=== PATIENT | male | born 1965 | race Hispanic/Latino ===

== ENCOUNTER 2020-12-04 17:20 | Observation (INO) ==
[2020-12-04] MEDS ORDERED: NORMAL SALINE 1,000 ML IV ONE ×2 (17:41→20:59)
[2020-12-04] MEDS ORDERED: ONDANSETRON HCL/PF 2 MG/ML VIAL IV ONE ×3 (17:41→20:45)
[2020-12-04 17:57] LABS: Hematocrit 46.1 % (42.0-52.0); Hemoglobin 14.9 gm/dL (13.5-18.0); Mean Cell Volume 88.5 fl (78-100); Mean Corpuscular Hemoglobin 28.6 pg (27-31); Mean Corpuscular Hgb Conc 32.3 g/dl (32-36); Mean Platelet Volume 9.7 fl (8-11.3); Neutrophil # 12.6 K/mm3 (1.3-6.0); Neutrophil % 84.4 % (42-75.0); Platelet Count 307 K/mm3 (150-450); Red Blood Count 5.21 M/mm3 (4.7-6.0); Red Cell Distribution Width 13.4 % (11.5-14.0); White Blood Count 14.9 K/mm3 (4.0-10.5)
--- NOTE | 2020-12-04 18:07 | ERNOTE ---
<Ravi Sheriff - Last Filed: 12/04/20 19:15> Medical Problem HPI - Narrative Date of Service: 12/04/20 - General Chief Complaint: Nausea/Vomiting Time Seen by Provider: 12/04/20 17:37 Source: patient Exam Limitations: no limitations - Immun/Allergies/Home Medications Immunizations: IMMUNIZATION HX Immunizations Up to Date Yes History of Influenza Vaccine Yes Hx Pneumococcal Vaccination Yes Allergies/Adverse Reactions: Allergies No Known Allergies Allergy (Verified 12/04/20 17:29) Home Medications: HOME MEDICATIONS omeprazole 40 mg capsule,delayed release 40 mg PO DAILY PRN #30 cap 08/21/19 [Last Taken Unknown] aspirin 81 mg tablet,delayed release 81 mg PO DAILY #30 tab 06/17/20 [Last Taken Unknown] lisinopril 20 mg tablet 20 mg PO DAILY #30 tab 07/11/20 [Last Taken Unknown] atorvastatin 20 mg tablet 20 mg PO DAILY #30 tab 11/03/20 [Last Taken Unknown] - History of Present History Narrative: Patient presents to the ED for nausea and dry heaves. He relates that he was at work and developed nausea, hot and cold chills and started dry heaving. Upper abdominal pain with this. No diarrhea. No CP or SOB. No other sick contacts. Has not seen anyone else for this. No blood in the vomit. No CP or SOB. Has not had anything like this before. Waxing and waning symptoms. Timing: constant, other - fluctuating intensity Severity: moderate Modifying Factors - (Improves): Present: other - nothing Modifying Factors - (Worsens): Present: other - nothing Review of Systems - Review of Systems Constitutional: Absent: fever ENT: Absent: sore throat Respiratory: Absent: shortness of breath Cardiology: Absent: chest pain Gastrointestinal/Abdominal: Present: See HPI Genitourinary: Absent: dysuria Neurological: Absent: weakness All Other Systems: All systems neg except as marked Medical History (Last Reviewed 12/04/20 @ 17:48 by Ravi Sheriff MD) COVID-19 vaccine administered (Acute) Hyperlipidemia (Chronic) Onset Date: Unknown Depression (Chronic) Onset Date: Unknown Anxiety (Chronic) Onset Date: Unknown Stroke Surgical History: Surgical History (Last Reviewed 12/04/20 @ 17:48 by Ravi Sheriff MD) H/O colonoscopy (Resolved) Onset Date: ~2016 WNL Repeat in 10 years Family History: Family History (Last Reviewed 12/04/20 @ 17:48 by Ravi Sheriff MD) Mother Alive and well Father , in 2008 Parkinson's disease Social History: (Last Reviewed 12/04/20 @ 17:48 by Ravi Sheriff MD) Social History: adopted: No Marital status: lives independently: Yes household members: none current occupational status: employed current occupation: [employer] Highest level of school completed/degree received: high school graduate Service: No Tobacco: Smoking Status: Never smoker Alcohol: alcohol intake: current alcohol intake frequency: a few times a month Substance Use: substance use type: does not use Dietary Habits: caffeine: Yes Type: carbonated beverages Physical Exam - Physical Exam General Appearance: Present: alert, no apparent distress Head Exam: Present: normal inspection, no evidence of injury Eye Exam: Normal inspection: bilateral, PERRL: bilateral Ears, Nose, Throat: Present: normal ENT inspection Neck: Present: normal inspection Respiratory: Present: no respiratory distress, normal breath sounds, no accessory muscle use, lungs clear Cardiovascular/Chest: Present: regular rate, rhythm, normal peripheral pulses Gastrointestinal/Abdominal: Present: normal bowel sounds, soft, other - epigastric and RUQ tendenress to palpation without mass or clear peritoneal signs Back Exam: Present: normal range of motion Extremity Exam: Present: normal inspection, normal range of motion Neurological Exam: Present: alert, other - no acute unilateral focal motor or sensory deficits Skin Exam: Present: normal color, warm/dry Progress - Results and Orders Patient's Lab Results:: I have reviewed the patient's lab results. - Vital Signs Patient's Vital Signs:: I have reviewed the patient's vital signs. Vital Signs: Vital Signs 12/04/20 17:23 Temperature 36.4 C Pulse Rate 97 Respiratory Rate 19 Blood Pressure 143/83 H O2 Sat by Pulse Oximetry 100 - EKG EKG #1 EKG: NSR EKG read: Interp. by me EKG Comments: NSR rate 67. No STEMI or acute changes noted. - Progress/Reassessment Chief Complaint: Nausea/Vomiting - Transfer of Care Physician Sign Out: Ravi Sheriff Receiving Physician: Demar Schuster Pending Results: CT/MRI results Departure Clinical Impression: Acute pancreatitis - Departure Disposition: Short Term Hospital Inpatient Condition: Fair Referrals: Bryant Chau MD [Primary Care Provider] - <Demar Schuster - Last Filed: 12/04/20 21:03> Medical Problem HPI - Immun/Allergies/Home Medications Immunizations: IMMUNIZATION HX Immunizations Up to Date Yes History of Influenza Vaccine Yes Hx Pneumococcal Vaccination Yes Medical History (Last Reviewed 12/04/20 @ 17:48 by Ravi Sheriff MD) COVID-19 vaccine administered (Acute) Hyperlipidemia (Chronic) Onset Date: Unknown Depression (Chronic) Onset Date: Unknown Anxiety (Chronic) Onset Date: Unknown Stroke Surgical History: Surgical History (Last Reviewed 12/04/20 @ 17:48 by Ravi Sheriff MD) H/O colonoscopy (Resolved) Onset Date: ~2016 WNL Repeat in 10 years Family History: Family History (Last Reviewed 12/04/20 @ 17:48 by Ravi Sheriff MD) Mother Alive and well Father , in 2008 Parkinson's disease Social History: (Last Reviewed 12/04/20 @ 17:48 by Ravi Sheriff MD) Social History: adopted: No Marital status: lives independently: Yes household members: none current occupational status: employed current occupation: [employer] Highest level of school completed/degree received: high school graduate Service: No Tobacco: Smoking Status: Never smoker Alcohol: alcohol intake: current alcohol intake frequency: a few times a month Substance Use: substance use type: does not use Dietary Habits: caffeine: Yes Type: carbonated beverages Progress - Vital Signs Vital Signs: Vital Signs 12/04/20 17:23 12/04/20 18:01 12/04/20 18:23 Temperature 36.4 C Pulse Rate 97 89 89 Respiratory Rate 19 16 Blood Pressure 143/83 H 152/84 H 148/72 H O2 Sat by Pulse Oximetry 100 96 99 12/04/20 18:44 12/04/20 18:50 12/04/20 19:22 Temperature Pulse Rate 104 H 96 98 Respiratory Rate 18 16 16 Blood Pressure 159/117 H 159/81 H 148/78 H O2 Sat by Pulse Oximetry 99 100 99 12/04/20 19:48 Temperature Pulse Rate 98 Respiratory Rate 16 Blood Pressure 128/78 O2 Sat by Pulse Oximetry 99 - CT/Ultrasound CT/Ultrasound Narrative: [address] [place] [id number] NAME: Luis A Nelson : 1965 MR #: [id number] CC: Ravi Sheriff MD LOC: ER ADM DATE: DIS DATE: X-RAY REPORT ~[id number] CT/CT Abdomen/Pelvis W/C *~ Exam Date: 12/04/2020 20:01 Ordering Physician: Ravi Sheriff MD Indication: Epigastric abdominal pain. Nausea and vomiting. Pancreatitis. Technique: After the administration of enteric contrast material, early post IV contrast imaging through the abdomen, and delayed post contrast imaging through the abdomen and pelvis. Coronal reformatted images were performed. Individualized dose optimization technique was used for the performed procedure including automated exposure control, adjustment of the mA and/or kV according to patient size and/or the iterative reconstruction technique. Comparison: Previous CT scan dated December 04, 2009 Findings: Abdomen: The lung bases are clear. The liver is normal without mass or ductal dilation. The gallbladder is normal. Splenic granulomas. Pancreas is normal. There is no edema, fatty stranding or evidence for pancreatitis. No mass or ductal dilation. The adrenal glands are normal. The kidneys demonstrate normal contrast-enhancement and excretion and are without solid mass, nephrolithiasis or hydronephrosis. The stomach and small bowel loops are well-opacified and normal. No mesenteric or retroperitoneal lymphadenopathy. The appendix is normal. Scattered diverticulosis throughout the distal colon. No inflammatory change to suggest diverticulitis. Pelvis: The bladder is well distended and normal. No free pelvic fluid. No inguinal or pelvic lymphadenopathy. There is mild atherosclerosis of the abdominal aorta and major branches. No aneurysmal dilation. There is multilevel degenerative change of the spine, SI joints and bilateral hips. IMPRESSION: 1. NO ACUTE INTRA-ABDOMINAL OR PELVIC PROCESS. 2. PANCREAS IS NORMAL. 3. ADDITIONAL COMMENTS AND DETAILS ABOVE. Electronically signed by Lino Wu D.O.. Lino Wu DO Dict: 12/04/202023 Typed: 12/04/202023/ Plan - Plan Plan: Patient doing well stable pain is gone however he still remains nauseous due to the due to the nausea will be keeping him overnight and observation Dr. Bella, admitting
[2020-12-04 18:18] LABS: ALT 47 U/L (19-67); AST 31 U/L (0-48); Albumin * 4.5 gm/dl (3.4-5.0); Alkaline Phosphatase * 95 U/L (50-170); Anion Gap 10.5 mmol/L (6.8-13.8); BUN/Creatinine Ratio 20.3 (9.0-21.6); Bilirubin, Total 0.6 mg/dL (0.0-1.1); Blood Urea Nitrogen 15 mg/dL (6-23); Ca. Corrected For Albumin 8.6 mg/dL (8.4-10.2); Calcium * 9.3 mg/dL (7.9-10.9); Carbon Dioxide 29.3 mmol/L (24-32.6); Chloride 103 mmol/L (97-106); Glucose * 116 mg/dL (70-110); Lipase 1065 U/L (73-393); Potassium 3.8 mmol/L (3.4-4.6); Sodium 139 mmol/L (132-142); Total Protein 8.4 gm/dL (6.2-8.2); Troponin I Less than 0.017 ng/mL (0.00-0.10)
[2020-12-04] MEDS ORDERED: MORPHINE SULFATE 4 MG/ML SYRG IV ONE (18:23)
[2020-12-04] MEDS ORDERED: DIATRIZOATE MEGLUMINE, SODIUM 30 ML BTL PO ONE (18:32)
[2020-12-04 18:45] LABS: Amylase * 223 U/L (25-115); LD 176 U/L (85-227)
[2020-12-04 19:05] LABS: Urine Bilirubin Negative (NEGATIVE); Urine Ketone 15 mg/dL (NEGATIVE); Urine Nitrite Negative (NEGATIVE); Urine Protein Negative (NEGATIVE); Urine Specific Gravity 1.025 SP.GR. (1.005-1.030); Urine Urobilinogen Normal (NORMAL)
[2020-12-04] MEDS ORDERED: diphenhydrAMINE HCL 50 MG/ML VIAL IV ONE (19:13)
[2020-12-04] MEDS ORDERED: METOCLOPRAMIDE HCL 5 MG/ML VIAL IV ONE (19:13)
[2020-12-04 19:15] LABS: Urine Appearance Clear (CLEAR); Urine Blood 5 /ul (NEGATIVE); Urine Color Yellow
[2020-12-04 19:16] LABS: Urine Bacteria TRACE; Urine Mucus Few - 1+; Urine RBC 0-5 /hpf (0-5); Urine WBC TRACE /hpf (0-5)
[2020-12-04] MEDS ORDERED: PIPERACILLIN SODIUM/TAZOBACTAM 3.375 GM in DEXTROSE 5 % IN WATER 100 ML IV ONE ×2 (19:48)
[2020-12-04] MEDS ORDERED: ONDANSETRON HCL/PF 2 MG/ML VIAL IV PRN (20:59)
[2020-12-04] MEDS ORDERED: MORPHINE SULFATE 4 MG/ML SYRG IV PRN (21:01)
[2020-12-04] MEDS ORDERED: diphenhydrAMINE HCL 50 MG/ML VIAL IV PRN (23:11)
[2020-12-04] MEDS ORDERED: METOCLOPRAMIDE HCL 5 MG/ML VIAL IV PRN (23:12)
[2020-12-05 06:17] LABS: Hematocrit 40.6 % (42.0-52.0); Hemoglobin 13.1 gm/dL (13.5-18.0); Mean Cell Volume 88.5 fl (78-100); Mean Corpuscular Hemoglobin 28.5 pg (27-31); Mean Corpuscular Hgb Conc 32.3 g/dl (32-36); Mean Platelet Volume 10.1 fl (8-11.3); Neutrophil # 9.9 K/mm3 (1.3-6.0); Neutrophil % 82.8 % (42-75.0); Platelet Count 268 K/mm3 (150-450); Red Blood Count 4.59 M/mm3 (4.7-6.0); Red Cell Distribution Width 13.7 % (11.5-14.0); White Blood Count 11.9 K/mm3 (4.0-10.5)
[2020-12-05 06:31] LABS: ALT 35 U/L (19-67); AST 23 U/L (0-48); Albumin * 3.5 gm/dl (3.4-5.0); Alkaline Phosphatase * 76 U/L (50-170); Amylase * 81 U/L (25-115); Anion Gap 13.1 mmol/L (6.8-13.8); BUN/Creatinine Ratio 17.1 (9.0-21.6); Bilirubin, Total 0.6 mg/dL (0.0-1.1); Blood Urea Nitrogen 12 mg/dL (6-23); Ca. Corrected For Albumin 8.3 mg/dL (8.4-10.2); Calcium * 8.2 mg/dL (7.9-10.9); Carbon Dioxide 24.3 mmol/L (24-32.6); Chloride 106 mmol/L (97-106); Glucose * 104 mg/dL (70-110); Lipase 215 U/L (73-393); Potassium 3.4 mmol/L (3.4-4.6); Sodium 140 mmol/L (132-142); Total Protein 6.6 gm/dL (6.2-8.2)
[2020-12-05 06:32] LABS: Troponin I Less than 0.017 ng/mL (0.00-0.10)
[2020-12-05] MEDS ORDERED: PANTOPRAZOLE SODIUM 40 MG TABLET.EC PO SCH (08:30)
--- NOTE | 2020-12-05 08:42 | HPDIS ---
Chief Complaint - Chief Complaint Date of Service: 12/05/20 Time of Service: 08:11 Chief Complaint: Nausea and vomiting x1 day History of Present Illness: 55-year-old male with a past medical history of hypertension, anxiety, depressi on, GERD stroke, hyperlipidemia presents with complaints of nausea and vomiting x1 day. He states his symptoms began yesterday morning and progressively worsened. He presented to the emergency room and was found to have have a leukocytosis of 14.9, lipase of 1065. CT abdomen pelvis showed a normal pancreas, no acute intra-abdominal or pelvic process. He responded well to Reglan and Benadryl. He was admitted for acute pancreatitis. Medical History (Last Reviewed 12/04/20 @ 21:19 by Orlando Gregory RN) COVID-19 vaccine administered (Acute) Hyperlipidemia (Chronic) Onset Date: Unknown Depression (Chronic) Onset Date: Unknown Anxiety (Chronic) Onset Date: Unknown Stroke Surgical History: Surgical History (Last Reviewed 12/04/20 @ 21:19 by Orlando Gregory RN) H/O colonoscopy (Resolved) Onset Date: ~2016 WNL Repeat in 10 years Family History: Family History (Last Updated 12/04/20 @ 21:19 by Orlando Gregory RN) Mother Alive and well Father , in 2008 Parkinson's disease Sister Parkinson's disease Social History: (Last Updated 12/04/20 @ 21:20 by Orlando Gregory RN) Social History: adopted: No Marital status: lives independently: No lives independently comment: with mother household members: none current occupational status: employed current occupation: [employer] Highest level of school completed/degree received: Associate degree: [employer] Service: No Tobacco: Smoking Status: Never smoker Alcohol: alcohol intake: current alcohol intake frequency: a few times a month Substance Use: substance use type: does not use Dietary Habits: caffeine: Yes Type: carbonated beverages Review Of Systems (GEN) - Review of Systems Generalized/Overall Review: Absent: Fever Respiratory: Absent: Shortness of Breath Cardiac: Absent: Chest Pain Abdominal: Present: Nausea, Vomiting. Absent: Abdominal Pain Misc: All systems neg except as marked Immunizations: IMMUNIZATION HX Immunizations Up to Date Yes History of Influenza Vaccine Yes Hx Pneumococcal Vaccination Yes Allergies/Adverse Reactions: Allergies Allergy/AdvReac Type Severity Reaction Status Date / Time No Known Allergies Allergy Verified 12/04/20 17:29 Home Medications: HOME MEDICATIONS omeprazole 40 mg capsule,delayed release 40 mg PO DAILY PRN #30 cap 08/21/19 [Last Taken Unknown] aspirin 81 mg tablet,delayed release 81 mg PO DAILY #30 tab 06/17/20 [Last Taken Unknown] lisinopril 20 mg tablet 20 mg PO DAILY #30 tab 07/11/20 [Last Taken Unknown] atorvastatin 20 mg tablet 20 mg PO DAILY #30 tab 11/03/20 [Last Taken Unknown] Exam - Exam Vital Signs: Vital Signs - Last Taken Temp 37.5 C 12/05/20 06:00 Pulse 97 12/05/20 06:00 Resp 16 12/05/20 06:00 BP 112/73 12/05/20 06:00 Pulse Ox 96 12/05/20 06:00 Constitutional: Present: Alert, Cooperative, Well developed, Well nourished, No distress, Middle aged ENT Exam: Present: hearing grossly normal, moist mucous membranes Eye Exam: bilateral eye: normal inspection, EOMI Neck: Present: supple. Absent: lymphadenopathy (R), lymphadenopathy (L) Back Exam: Present: no CVA tenderness, no vertebral tenderness Respiratory: Present: lungs clear, no respiratory distress, no accessory muscle use, No wheezing. Absent: crackles, rhonchi Cardiovascular/Chest: Present: normal peripheral pulses, regular rate, rhythm, no edema, no murmur Peripheral Pulses: dorsalis-pedis (R): 2+, dorsalis-pedis (L): 2+ Abdomen: Present: Normal bowel sounds, soft, nontender Extremity: Present: no pedal edema Skin Exam: Present: normal color, warm/dry Neurologic: Present: alert, normal mood/affect Appearance: Present: appropriate appearance Eye contact: Present: cooperative Thoughts: Present: normal thought pattern, normal mood /affect Diagnostic Studies: Abnormal Lab Results 12/04/20 12/04/20 12/04/20 Range/Units 17:50 17:50 17:50 WBC 14.9 H (4.0-10.5) K/mm3 RBC (4.7-6.0) M/mm3 Hgb (13.5-18.0) gm/dL Hct (42.0-52.0) % Immature Gran # (Auto) 0.05 H (0.000-0.0310) K/mm3 Neutrophils % 84.4 H (42-75.0) % Lymphocytes % 11.8 L (20-51) % Neutrophils # 12.6 H (1.3-6.0) K/mm3 Random Glucose 116 H (70-110) mg/dL Calcium Adj for Albumin (8.4-10.2) mg/dL Total Protein 8.4 H (6.2-8.2) gm/dL Amylase 223 H (25-115) U/L Lipase 1065 H (73-393) U/L Urine Blood (NEGATIVE) /ul Urine Mucus (NONE) 12/04/20 12/05/20 12/05/20 Range/Units 18:55 06:12 06:12 WBC 11.9 H D (4.0-10.5) K/mm3 RBC 4.59 L (4.7-6.0) M/mm3 Hgb 13.1 L (13.5-18.0) gm/dL Hct 40.6 L (42.0-52.0) % Immature Gran # (Auto) 0.04 H (0.000-0.0310) K/mm3 Neutrophils % 82.8 H (42-75.0) % Lymphocytes % 12.9 L (20-51) % Neutrophils # 9.9 H (1.3-6.0) K/mm3 Random Glucose (70-110) mg/dL Calcium Adj for Albumin 8.3 L (8.4-10.2) mg/dL Total Protein (6.2-8.2) gm/dL Amylase (25-115) U/L Lipase (73-393) U/L Urine Blood 5 H (NEGATIVE) /ul Urine Mucus Few - 1+ H (NONE) Laboratory Results WBC 11.9 K/mm3 (4.0-10.5) H D 12/05/20 06:12 RBC 4.59 M/mm3 (4.7-6.0) L 12/05/20 06:12 Hgb 13.1 gm/dL (13.5-18.0) L 12/05/20 06:12 Hct 40.6 % (42.0-52.0) L 12/05/20 06:12 MCV 88.5 fl (78-100) 12/05/20 06:12 MCH 28.5 pg (27-31) 12/05/20 06:12 MCHC 32.3 g/dl (32-36) 12/05/20 06:12 RDW 13.7 % (11.5-14.0) 12/05/20 06:12 Plt Count 268 K/mm3 (150-450) 12/05/20 06:12 MPV 10.1 fl (8-11.3) 12/05/20 06:12 Immature Gran % (Auto) 0.30 % (0.001-0.429) 12/05/20 06:12 Immature Gran # (Auto) 0.04 K/mm3 (0.000-0.0310) H 12/05/20 06:12 Neutrophils % 82.8 % (42-75.0) H 12/05/20 06:12 Lymphocytes % 12.9 % (20-51) L 12/05/20 06:12 Monocytes % 3.8 % (0.0-9) 12/05/20 06:12 Eosinophils % 0.0 % (0.0-3.0) 12/05/20 06:12 Basophils % 0.2 % (0.0-1.0) 12/05/20 06:12 Nucleated RBC % 0.0 k/mm3 (0-1) 12/05/20 06:12 Neutrophils # 9.9 K/mm3 (1.3-6.0) H 12/05/20 06:12 Lymphocytes # 1.53 k/mm3 (1.5-3.5) 12/05/20 06:12 Monocytes # 0.5 k/mm3 (0.0-1.0) 12/05/20 06:12 Eosinophils # 0.0 k/mm3 (0.0-0.7) 12/05/20 06:12 Absolute Basophils 0.0 k/mm3 (0.0-0.1) 12/05/20 06:12 ESR 10 mm/hr (0-10) 12/05/20 06:12 Sodium 140 mmol/L (132-142) 12/05/20 06:12 Plasma Sodium 140 mmol/L (130-142) 12/05/20 06:12 Potassium 3.4 mmol/L (3.4-4.6) 12/05/20 06:12 Chloride 106 mmol/L (97-106) 12/05/20 06:12 Carbon Dioxide 24.3 mmol/L (24-32.6) 12/05/20 06:12 Anion Gap 13.1 mmol/L (6.8-13.8) 12/05/20 06:12 BUN 12 mg/dL (6-23) 12/05/20 06:12 Creatinine 0.70 mg/dL (0.4-1.4) 12/05/20 06:12 Est GFR (Non-Af Amer) 124 mL/min (60-130) 12/05/20 06:12 BUN/Creatinine Ratio 17.1 (9.0-21.6) 12/05/20 06:12 Random Glucose 104 mg/dL (70-110) 12/05/20 06:12 Lactic Acid, Venous 0.6 mmol/L (0.4-2.0) 12/05/20 06:12 Calcium 8.2 mg/dL (7.9-10.9) 12/05/20 06:12 Calcium Adj for Albumin 8.3 mg/dL (8.4-10.2) L 12/05/20 06:12 Total Bilirubin 0.6 mg/dL (0.0-1.1) 12/05/20 06:12 AST 23 U/L (0-48) 12/05/20 06:12 ALT 35 U/L (19-67) 12/05/20 06:12 Alkaline Phosphatase 76 U/L (50-170) 12/05/20 06:12 Lactate Dehydrogenase 176 U/L (85-227) 12/04/20 17:50 Troponin I Less than 0.017 ng/mL (0.00-0.10) 12/05/20 06:12 Total Protein 6.6 gm/dL (6.2-8.2) 12/05/20 06:12 Albumin 3.5 gm/dl (3.4-5.0) 12/05/20 06:12 Amylase 81 U/L (25-115) 12/05/20 06:12 Lipase 215 U/L (73-393) 12/05/20 06:12 Urine Color Yellow 12/04/20 18:55 Urine Appearance Clear (CLEAR) 12/04/20 18:55 Urine pH 6.0 pH (5.0-7.0) 12/04/20 18:[address] 1.025 SP.GR. (1.005-1.030) 12/04/20 18:55 Urine Protein Negative mg/dL (NEGATIVE) 12/04/20 18:55 Urine Glucose (UA) Negative mg/dL (NEGATIVE) 12/04/20 18:55 Urine Ketones 15 mg/dL (NEGATIVE) 12/04/20 18:55 Urine Blood 5 /ul (NEGATIVE) H 12/04/20 18:55 Urine Nitrate Negative (NEGATIVE) 12/04/20 18:55 Urine Bilirubin Negative mg/dl (NEGATIVE) 12/04/20 18:55 Urine Urobilinogen Normal EU/dl (NORMAL) 12/04/20 18:55 Ur Leukocyte Esterase Negative /ul (NEGATIVE) 12/04/20 18:55 Urine RBC 0-5 /hpf (0-5) 12/04/20 18:55 Urine WBC Trace /hpf (0-5) 12/04/20 18:55 Ur Epithelial Cells 0-5 /hpf (0-5) 12/04/20 18:55 Urine Bacteria Trace (NONE) 12/04/20 18:55 Urine Mucus Few - 1+ (NONE) H 12/04/20 18:55 Urine Culture Comments No culture indicated 12/04/20 18:55 Ethyl Alcohol Less than 3.0 mg/dL (0.0-10.0) 12/04/20 17:50 SARS-CoV-2 (PCR) Not detected (NotDetected) 12/04/20 18:25 Assessment/Plan - Narrative Narrative: 55-year-old male with a past medical history of hypertension, anxiety, dep ression, stroke, hyperlipidemia presents with complaints of nausea and vomiting x1 day. He states his symptoms began yesterday morning and progressively worsened. He presented to the emergency room and was found to have have a leukocytosis of 14.9, lipase of 1065. CT abdomen pelvis showed a normal pancreas, no acute intra-abdominal or pelvic process. He responded well to Reglan and Benadryl. He was admitted for acute pancreatitis. Today he is not having any more nausea or vomiting. He denies abdominal pain. He would like to try a diet. His lipase has normalized back to 215. If he parviz erates his diet he will be able to be discharged home today. Plan #1 resume diet this morning. #2 continue with Reglan as needed #3 resume home medications for comorbidities #4 discharge planning - Assessment/Plan (1) Acute pancreatitis Problem: Acute (2) Nausea and vomiting Problem: Acute (3) HTN (hypertension) Problem: Acute (4) Hyperlipidemia Problem: Chronic Qualifiers: Hyperlipidemia type: pure hypercholesterolemia Qualified Code(s): E78.00 - Pure hypercholesterolemia, unspecified (5) Depression Problem: Chronic Qualifiers: Depression Type: unspecified Qualified Code(s): F32.9 - Major depressive disorder, single episode, unspecified (6) Anxiety Problem: Chronic (7) GERD (gastroesophageal reflux disease) Problem: Resolved Qualifiers: Esophagitis presence: esophagitis presence not specified Qualified Code(s): K21.9 - Gastro-esophageal reflux disease without esophagitis (1) Acute pancreatitis Problem: Acute (2) Nausea and vomiting Problem: Acute (3) HTN (hypertension) Problem: Acute (4) Hyperlipidemia Problem: Chronic Qualifiers: Hyperlipidemia type: pure hypercholesterolemia Qualified Code(s): E78.00 - Pure hypercholesterolemia, unspecified (5) Depression Problem: Chronic Qualifiers: Depression Type: unspecified Qualified Code(s): F32.9 - Major depressive disorder, single episode, unspecified (6) Anxiety Problem: Chronic (7) GERD (gastroesophageal reflux disease) Problem: Resolved Qualifiers: Esophagitis presence: esophagitis presence not specified Qualified Code(s): K21.9 - Gastro-esophageal reflux disease without esophagitis Hospital Course: 55-year-old male with a past medical history of hypertension, anxiety, depression, stroke, hyperlipidemia presents with complaints of nausea and vomiting x1 day. He states his symptoms began yesterday morning and progressively worsened. He presented to the emergency room and was found to have have a leukocytosis of 14.9, lipase of 1065. CT abdomen pelvis showed a normal pancreas, no acute intra-abdominal or pelvic process. He responded well to Reglan and Benadryl. He was admitted for acute pancreatitis. Today he is not having any more nausea or vomiting. He denies abdominal pain. He would like to try a diet. His lipase has normalized back to 215. His white blood cell count has dropped down to 11.9. He tolerated his diet well and is stable to be discharged home today. Procedures Performed: none Results and Findings: Lab Pending Results 12/04/20 17:50: WBC 14.9 H, RBC 5.21, Hgb 14.9, Hct 46.1, MCV 88.5, MCH 28.6, MCHC 32.3, RDW 13.4, Plt Count 307, MPV 9.7, Immature Gran % (Auto) 0.30, Immature Gran # (Auto) 0.05 H, Neutrophils % 84.4 H, Lymphocytes % 11.8 L, Monocytes % 3.0, Eosinophils % 0.2, Basophils % 0.3, Nucleated RBC % 0.0, Neutrophils # 12.6 H, Lymphocytes # 1.76, Monocytes # 0.5, Eosinophils # 0.0, Absolute Basophils 0.1 12/04/20 17:50: Sodium 139, Plasma Sodium 139, Potassium 3.8, Chloride 103, Carbon Dioxide 29.3, Anion Gap 10.5, BUN 15, Creatinine 0.74, Est GFR (Non-Af Amer) 117, BUN/Creatinine Ratio 20.3, Random Glucose 116 H, Calcium 9.3, Calcium Adj for Albumin 8.6, Total Bilirubin 0.6, AST 31, ALT 47, Alkaline Phosphatase 95, Troponin I Less than 0.017, Total Protein 8.4 H, Albumin 4.5, Lipase 1065 H 12/04/20 17:50: Lactic Acid, Venous 1.0 12/04/20 17:50: Lactate Dehydrogenase 176, Amylase 223 H, Ethyl Alcohol Less than 3.0 12/04/20 18:25: SARS-CoV-2 (PCR) Not detected 12/04/20 18:55: Urine Color Yellow, Urine Appearance Clear, Urine pH 6.0, Ur Specific [address] 1.025, Urine Protein Negative, Urine Glucose (UA) Negative, Urine Ketones 15, Urine Blood 5 H, Urine Nitrate Negative, Urine Bilirubin Negative, Urine Urobilinogen Normal, Ur Leukocyte Esterase Negative, Urine RBC 0-5, Urine WBC Trace, Ur Epithelial Cells 0-5, Urine Bacteria Trace, Urine Mucus Few - 1+ H, Urine Culture Comments No culture indicated 12/05/20 06:12: WBC 11.9 H D, RBC 4.59 L, Hgb 13.1 L, Hct 40.6 L, MCV 88.5, MCH 28.5, MCHC 32.3, RDW 13.7, Plt Count 268, MPV 10.1, Immature Gran % (Auto) 0.30, Immature Gran # (Auto) 0.04 H, Neutrophils % 82.8 H, Lymphocytes % 12.9 L, Monocytes % 3.8, Eosinophils % 0.0, Basophils % 0.2, Nucleated RBC % 0.0, Neutrophils # 9.9 H, Lymphocytes # 1.53, Monocytes # 0.5, Eosinophils # 0.0, Absolute Basophils 0.0 12/05/20 06:12: ESR 10 12/05/20 06:12: Sodium 140, Plasma Sodium 140, Potassium 3.4, Chloride 106, Carbon Dioxide 24.3, Anion Gap 13.1, BUN 12, Creatinine 0.70, Est GFR (Non-Af Amer) 124, BUN/Creatinine Ratio 17.1, Random Glucose 104, Calcium 8.2, Calcium Adj for Albumin 8.3 L, Total Bilirubin 0.6, AST 23, ALT 35, Alkaline Phosphatase 76, Troponin I Less than 0.017, Total Protein 6.6, Albumin 3.5, Amylase 81, Lipase 215 12/05/20 06:12: Lactic Acid, Venous 0.6 Discharge Location: Home Disposition: Home self-care Condition: Fair Discharge Activity: Activity as tolerated Discharge Diet: General/regular food Referrals: Bryant Chau MD [Primary Care Provider] - Complete Home Medications List: Complete Home Medication List: omeprazole 40 mg capsule,delayed release 40 mg PO DAILY PRN #30 cap 08/21/19 aspirin 81 mg tablet,delayed release 81 mg PO DAILY #30 tab 06/17/20 lisinopril 20 mg tablet 20 mg PO DAILY #30 tab 07/11/20 atorvastatin 20 mg tablet 20 mg PO DAILY #30 tab 11/03/20
[2020-12-05] MEDS ORDERED: ASPIRIN 81 MG TABLET.DR PO SCH (09:00)
[2020-12-05] MEDS ORDERED: LISINOPRIL 20 MG TABLET PO SCH (09:00)
[2020-12-05 14:32] VITALS: BP 127/79
[2020-12-05] MEDS ORDERED: ROSUVASTATIN CALCIUM 10 MG TABLET PO SCH (21:00)
== END 2020-12-05 14:55 | disposition home or self-care (01) ==
LOC: MS 17:20 → ER 17:20 → MS 21:15
PROVIDERS: ADMIT Internal Medicine; ATTEND Internal Medicine